=== PATIENT | female | born 1955 | race Caucasian/White ===

== ENCOUNTER → 2018-06-04 | Outpatient (CLI) | payer MEDICARE, BC ==
[2015-11-22 20:34] VITALS: BP 114/72
[~2018-06-04] MED LIST: ALPRAZOLAM0.25 MG PO; ASPIRIN E.C. 8181 MG PO; CIPRO500 M1 PO; CYCLOPHOSPHAMID50 M1 PO; DECADRON 4MG TAB4 MG PO; GLUCOPHAGE500 MG/TAB PO; HCTZ 25MG25 MG PO; LEXAPRO5 MG PO; LISINOPRIL20 MG PO; PRAVASTATIN SOD10 MG PO; PRILOSEC40 M1 PO; PROCHLORPERAZIN10 M2; TIROSINT112 MC1 PO; ZOFRAN 8MG8 MG PO; ZOFRAN ODT4 MG PO; ZOVIRAX400 M1 PO
== END ==
LOC: MAMMO 13:00
DX: Z12.31 Encounter for screening mammogram for malignant neoplasm of breast (principal)